=== PATIENT | female | born 1935 | race Caucasian/White ===

== ENCOUNTER 2017-11-24 10:31 | Inpatient (IN) | payer MEDICARE, BC ==
[~2017-11-24] VITALS: Ht 165.1 cm; Wt 83.0 kg
--- NOTE | 2017-11-24 10:43 | NUR ---
PT TO ROOM PER EMS.
[2017-11-24] MEDS ORDERED: TRAZODONE50 MG PO (10:45)
[2017-11-24] MEDS ORDERED: FUROSEMIDE40 MG PO (10:45)
[2017-11-24] MEDS ORDERED: METOPROL TAR25 MG PO (10:45)
[2017-11-24] MEDS ORDERED: AMLODIPINE5 MG PO (10:46)
[2017-11-24] MEDS ORDERED: CEVIMELINE HCL30 MG PO (10:46)
[2017-11-24] MEDS ORDERED: ROPINIROLE2 MG PO (10:47)
[2017-11-24] MEDS ORDERED: GABAPENTIN100 MG PO (10:47)
[2017-11-24] MEDS ORDERED: KLOR-CON M2020 MEQ PO (10:47)
[2017-11-24] MEDS ORDERED: AMIODARONE200 MG PO (10:48)
[2017-11-24] MEDS ORDERED: NEXIUM40 MG PO (10:48)
[2017-11-24] MEDS ORDERED: PREDNISONE10 MG PO (10:49)
[2017-11-24] MEDS ORDERED: ASPIRIN81 MG PO (10:49)
--- NOTE | 2017-11-24 10:58 | NUR ---
EMS UNABLE TO ESTABLISH IV SITE, SERGIO AQUINO UNABLE TO OBTAIN IV SITE. ORDER PLACED FOR A PICC LINE. PT ALERT/ORIENTED X3, JOKING AND LAUGHING WITH STAFF. STATES JUST TRIPPED AND FELL AND COULD NOT GET BACK UP.
--- NOTE | 2017-11-24 10:59 | NUR ---
PT TAKEN OFF OF BACK BOARD PER DR. YA. AND TAKEN TO CT. SCAN FOR PLACEMENT OF PIC LINE AND XRAYS.
--- NOTE | 2017-11-24 11:38 | NUR ---
PT RETURNS FROM XRAY, FRIEND AT BEDSIDE. VITAL SIGNS STABLE.
--- NOTE | 2017-11-24 11:47 | NUR ---
CM spoke with charge nurse Guillermo regarding admission status. CM reviewed the chart and advised IP. Karri voiced agreement and stated he will inform the physician of same.
--- NOTE | 2017-11-24 12:25 | NUR ---
PT SUPINE ON STRETCHER. PP+BILAT. CAP REFILL BRISK. RLE W/OUTER ROTATION AND SHORTENING. PT CURRENTLY REPORTS DECREASE IN PAIN. ADVISED OF WAIT TIME. PT VOICED UNDERSTANDING AND IS CURRENTLY NPO. VSS. CALL LIGHT WITHIN REACH.
--- NOTE | 2017-11-24 12:59 | NUR ---
RASCON CATH 16F INSERTED USING STERILE TECHNIQUE. PT TOLERATED WELL. URINE SPECIMEN COLLECTED.
[2017-11-24 13:11] LABS: URINE BILIRUBIN - DIPSTICK NEGATIVE (NEGATIVE); URINE BLOOD DIPSTICK TRACE-INTACT (NEGATIVE); URINE CLARITY CLEAR; URINE COLOR YELLOW; URINE GLUCOSE - DIPSTICK NEGATIVE (NEGATIVE); URINE KETONE NEGATIVE (NEGATIVE); URINE LEUK ESTERASE NEGATIVE (NEGATIVE); URINE NITRITE - DIPSTICK NEGATIVE (Negative); URINE PROTEIN - DIPSTICK NEGATIVE (NEG-TRACE); URINE UROBILINOGEN - DIPSTICK 0.2 E.U./dL (0.2)
[2017-11-24 13:13] LABS: HEMATOCRIT 37.2 % (37.0-47.0); HEMOGLOBIN 12.6 g/dl (12.0-16.0); IMMATURE GRANULOCYTES 0.5 % (0.0-5.0); MEAN CELL VOLUME 101.4 fL CALC (80.0-100.0); MEAN CORPUSCULAR HGB 34.3 pG CALC (26.0-32.0); MEAN CORPUSCULAR HGB CONC 33.9 g/L CALC (32.0-36.0); NEUT# 11.25 thou/uL (2.00-7.15); RED BLOOD COUNT 3.67 mill/uL (4.20-5.60)
[2017-11-24 13:33] LABS: ALBUMIN 3.6 g/dL (3.2-5.0); ALKALINE PHOSPHATASE 80 u/l (38-126); ANION GAP 14 (6-22 (CALC)); BILIRUBIN, TOTAL 0.7 mg/dL (0.0-1.4); BUN 17 mg/dL (8-23); BUN/CREATININE RATIO 23 (12-20 (CALC)); CARBON DIOXIDE 26 mmol/l (22-30); CHLORIDE 102 mmol/l (95-108); CREATININE 0.8 mg/dL (0.5-1.0); GFR > 60 ML/MIN (>=60 (CALC)); GFR FOR AFR.AMER. > 60 ML/MIN (>=60 (CALC)); SGOT/AST 43 u/l (9-36); SODIUM 138 mmol/l (137-146); TOTAL PROTEIN 6.9 g/dL (6.3-8.2)
[2017-11-24 13:36] LABS: POTASSIUM 3.5 mmol/l (3.5-5.1)
--- NOTE | 2017-11-24 14:34 | NUR ---
PT W/DECREASE IN BP PT IS SUPINE. IV FLUIDS INITIATED BRISK RETURN FROM PICC. AWARE.
--- NOTE | 2017-11-24 15:06 | NUR ---
BP IMPROVED 168/69. MD AWARE. PT MEDICATED FOR PAIN W/MORPHINE. REPORT PROVIDED TO MILES CASTILLO. PT TO NI VIA STRETCHER IN STABLE CONDITION.
[2017-11-24 15:43] VITALS: BP 165/77
--- NOTE | 2017-11-24 16:24 | NUR ---
PT ARRIVES TO ROOM 280 VIA STRETCHER FROM ER, SLID OVER TO BED WITH DISCOMFORT NOTED. PT IS ALERT AND ORIENTED X 3, LUNGS CLEAR. PT FELL THIS AM PRIOR TO HER USUAL BM, NO URGE AT THIS TIME. RIGHT LEG IS SHORTNED AND EXTERNALLY ROTATED IN THE BED PER HP FX.
--- NOTE | 2017-11-24 17:39 | NUR ---
PER LAURA FROM OR, SURGERY TO BE DONE WEDNESDAY, SECOND CASE, WILL RETAIL SERVICES PROFESSIONAL FROM ROOM AROUND 1230.
[2017-11-24 20:00] VITALS: BP 97/58
--- NOTE | 2017-11-24 20:35 | NUR ---
PT MEDICATED ORDERS PROVIDE FOR PAIN REPORTED 7/10 ON PAIN SCALE AND FOR SLEEP AIDE. PT REFUSED MILK OF MAG STATING SHE HAD BM YESTERDAY. POC DISCUSSED W/PT AND MEDICATION SIDE AFFECTS DISCUSSED, BUT SHE REFUSED MOM. PULSES STRONG AND CIRCULATION INTACT TO RIGHT LEG/FOOT/ABLE TO WIGGLE TOES/WARM TO TOUCH. LOCX3, LUNG SOUNDS ARE CLEAR, ABD SOFT NON-TENDER.
--- NOTE | 2017-11-25 00:05 | NUR ---
PT HAS BEEN SLEEPING, BUT AWOKE HOT. I ASSISTED HER IN REMOVING SEVERAL BLANKETS AND TURNING ROOM COOLER. SHE DENIED THE NEED FOR REPOSITIONING. CALL LIGHT IS AT SIDE AND PT ENCOURAGED TO CALL IF ANY OTHER NEEDS ARISE, DENIES ANY AT THIS TIME.
--- NOTE | 2017-11-25 02:05 | NUR ---
PT MEDICATED FOR PAIN 7/10 ON PAIN SCALE REPORTED. ASSISTED IN REPOSITIONING FOR COMFORT. ASSISTED IN PO FLUIDS INTAKE. IV FLUIDS ARE RUNNING NS@100/SITE APPEARS HEALTHY AND PATENT. RASCON CATHETER PATENT AND DRAINING CLEAR YELLOW URINE. PT DENIES ANY OTHER NEEDS AT THIS TIME.
--- NOTE | 2017-11-25 04:44 | NUR ---
PT CALLED ASKING FOR ASSISTANCE IN REPOSITIONING, SHE WANTED TO ATTEMPT TO SIT UP. WE RAISED THE BED SLOWLY, BUT SHE WANTED TO SIT UP W/OUT THE BED ASSISTING. I EXPLAINED TO HER THAT SHE NEEDED SOMETHING SUPPORTING HER BACK, SO WE RAISED HER BED SLIGHTLY. SHE WAS CONCERNED ABOUT BEING ABLE TO EAT BREAKFAST, I REASSURED HER THAT SHE HAD QUITE AWHILE UNTIL BREAKFAST AND WE WOULD TREAT HER FOR PAIN AND ASSIST HER IN POSITIONING AND EATING WHEN THE TIME CAME. SHE REPORTS THAT HER PAIN IS 2/10 AT THIS TIME AND THAT SHE FEELS GOOD LONG SHE IS STILL. DENIES ANY OTHER NEEDS. IV FLUIDS RUNNING NS@100 IN PICC LINE. CALL LIGHT W/IN REACH AND PT ENCOURAGED TO CALL IF SHE NEEDS ANY ASSISTANCE AT ALL. ASSISTED WITH PO FLUIDS PRIOR TO LEAVING ROOM.
[2017-11-25 05:19] LABS: MEAN CELL VOLUME 104.4 fL CALC (80.0-100.0); MEAN CORPUSCULAR HGB 34.8 pG CALC (26.0-32.0); MEAN CORPUSCULAR HGB CONC 33.3 g/L CALC (32.0-36.0); RED BLOOD COUNT 3.16 mill/uL (4.20-5.60); RED CELL DISTRI WIDTH 13.2 % (11.5-15.5)
[2017-11-25 05:23] VITALS: BP 93/5
[2017-11-25 05:34] LABS: ANION GAP 12 (6-22 (CALC)); BUN 19 mg/dL (8-23); BUN/CREATININE RATIO 24 (12-20 (CALC)); CALCULATED LDLCHOLESTEROL 56 mg/dL (62-129 (CALC)); CARBON DIOXIDE 23 mmol/l (22-30); CHLORIDE 105 mmol/l (95-108); CHOLESTEROL HDL RATIO 3.2 (<4.4 (CALC)); CREATININE 0.8 mg/dL (0.5-1.0); GFR > 60 ML/MIN (>=60 (CALC)); GFR FOR AFR.AMER. > 60 ML/MIN (>=60 (CALC)); HDL CHOLESTEROL 35 mg/dL (>=40); MAGNESIUM 1.6 mg/dL (1.6-2.3); POTASSIUM 4.1 mmol/l (3.5-5.1); SODIUM 136 mmol/l (137-146); TOTAL CHOLESTEROL 112 mg/dl (0-199); TOTAL TRIGLYCERIDES 102 mg/dl (30-149); VLDL CHOLESTROL 20 mg/dl (0-48 (CALC))
--- NOTE | 2017-11-25 07:16 | NUR ---
BEDSIDE REPORT RECEIVED BY MALIK. PT IS SLEEPING IN BED WITH NO S/S OF DISTRESS NOTED. CALL LIGHT IN REACH.
[2017-11-25 08:40] VITALS: BP 137/72
--- NOTE | 2017-11-25 08:52 | NUR ---
ASSESSMENT DONE RESPS EVEN AND UNLABORED. PT IS A&O X3. MEDICATED PT WITH PERCOCET FOR PAIN SEE EMAR. RU PICC/NS 100ML/HR INFUSING WELL. PT DENIES ANY OTHER NEEDS AT THIS TIME. PT ABLE TO MOVE RIGHT LEG AND PULSE FELT. SAFETY PRECAUTIONS REINFORCED AND CALL LIGHT IN REACH.
--- NOTE | 2017-11-25 11:07 | NUR ---
Pt consented to receiving Pneumonia vaccine. However, pt received previous pneumonia vaccine at [facility]. Next pneumonia vaccine not due until August 2018 per pt. No pneumonia vaccine indicated at this time.
--- NOTE | 2017-11-25 11:14 | NUR ---
The request for medical records was sent and completed @11:15 am. Spoke to nia from Dr. Hickey office to confirm faw number.
--- NOTE | 2017-11-25 12:00 | NUR ---
PT IS EATING HER LUNCH AND VISITING WITH FRIENDS. PT DENIES ANY NEEDS AT THIS TIME. CALL LIGHT IN REACH.
--- NOTE | 2017-11-25 13:10 | NUR ---
WERNER SANCHEZ STATED THAT RECEIVED CLEARACNE FROM FOR PT TO HAVE SURGERY TOMORROW.
[2017-11-25 15:12] VITALS: BP 128/60
--- NOTE | 2017-11-25 15:41 | NUR ---
X3 PERSON ASSIST PT FOR A COMPLETE BED BATH. MEDICATED PT WITH MORPHINE FOR PAIN SEE EMAR. RASCON IS PATENT WITH YELLOW URINE. CALL LIGHT IN REACH.
--- NOTE | 2017-11-25 19:15 | NUR ---
BEDSIDE REPORT RECEIVED FROM DAY NURSE. PT IS IN BED LOW FOWLERS POSITION. ASSISTED PT IN REPOSITIONING FOR COMFORT. LIGHTS TURNED DOWN AND TV LEFT ON. REINFORCED TO PT BED CONTROLS AND CALL SYSTEM. SHE SAID SHE HAS TROUBLE REMEMBERING. PT ENCOURAGED TO CALL FOR ANY OF THOSE NEEDS AND I WILL ASSIST HER. CALL LIGHT NEXT TO HAND IN BED.
[2017-11-25 19:30] VITALS: BP 146/68
--- NOTE | 2017-11-25 20:53 | NUR ---
PT MEDICATED FOR PAIN 08/31. PT IS TALKATIVE AND ASKING LOTS OF QUESTIONS REGARDING HER SCHEDULE FOR TREATMENT TOMORROW. PT ASSISTED IN REPOSITIONING FOR COMFORT. PEDAL PULSES ARE STRONG AND CIRCULATION IS GOOD TO RIGHT LOWER EXT WITH WARM TO TOUCH, TOES AND FOOT WIGGLES. LUNG SOUNDS ARE CLEAR, ABD SOFT NON-TENDER, RASCON CATHETER PATENT AND DRAINING CLEAR YELLOW URINE AT THIS TIME WITH LEG STRAP IN PLACE. PT ASSISTED IN PO FLUIDS AND POC DISCUSSED WITH HER. DENIES ANY OTHER NEEDS AND CALL LIGHT AT SIDE.
[2017-11-26] VITALS (13 sets, daily range): BP systolic 106–197; BP diastolic 54–90
--- NOTE | 2017-11-26 02:45 | NUR ---
PT IS SLEEPING AT THIS TIME. NO S/S OF DISTRESS NOTED. CALL LIGHT AT SIDE AND DOOR OPEN.
--- NOTE | 2017-11-26 05:10 | NUR ---
PT MEDICATED FOR PAIN 10/01. DENIES ANY OTHER NEEDS REFUSES ANY CHANGE OF POSITION
--- NOTE | 2017-11-26 07:16 | NUR ---
BEDSIDE REPORT RECIEVED BY MALIK. PT IS RESTING IN BED WITH NO S/S OF DISTRESS NOTED.PT DENIES NEEDS AT THIS TIME. CALL LIGHT IN REACH.
--- NOTE | 2017-11-26 08:20 | NUR ---
DR. NORTON AT BEDSIDE TO ASSESS PT. ASSESSMENT DONE RESPS EVEN AND UNLABORED. PT STATED PAIN 4/10 IN HIP BUT DENIES PAIN MEDICATION AT THIS TIME. AT THIS TIME. PT IS A&O X3. RASCON IS PATENT WITH YELLOW URINE. PT DENEIS NEEDS AT THIS TIME. RU PICC/ NS 100ML/ HR INFUSING WELL. SAFETY PRECAUTIONS REINFORCED AND CALL LIGHT IN REACH.
--- NOTE | 2017-11-26 11:09 | NUR ---
MILES REDDY FROM OR CAME TO TAKE PT TO OR VIA BED. ENVIRONMENTAL LEAD AT SIDE.
--- NOTE | 2017-11-26 15:03 | NUR ---
PT CAME FROM OR VIA BED BY SOTERO. REPORT RECEIVED BY SOTERO. PT IS SHIVERING BUT STATED NOT COLD. INSIDE UPHOLSTERER WILL OBTAIN VS. PT DENIES PAIN AT THIS TIME. RASCON IS PATENT WITH YELLOW URINE. RIGHT HIP DRESSING CDI.CALL LIGHT IN REACH.
--- NOTE | 2017-11-26 15:41 | NUR ---
MEDICATED PT WITH HYDRALAZINE FOR BP 172/81 P-95. PT O2 AT ROOM AIR 88-89% BUT PT IS NOT TAKING DEEP BREATHS ENCOURAGE PT TO TAKE DEEP BREATHS. O2 PLACE AT 2L/MIN NOW 90%. CALL LIGHT IN REACH.
--- NOTE | 2017-11-26 16:15 | NUR ---
PT IS RESTING IN BED WITH NO S/S OF DISTRESS NOTED. PT DENIES PAIN AT THIS TIME. DRESSING TO RIGHT HIP CDI. CALL LIGHT IN REACH.
--- NOTE | 2017-11-26 19:28 | NUR ---
BEDSIDE REPORT RECEIVED, PT IS IN LOW FOWLERS POSITION W/ORGANIZATIONAL DEVELOPMENT DIRECTOR AT BEDSIDE. PT IS ATTEMPTING TO USE IS, SHE HAD QUESTIONS SO I RE-EDUCATED HER AND WORKED WITH HER IN USE OF THE IS. SHE DID PRACTICE BREATHS SHOWING USAGE. I ENCOURAGED HER TO USE 10X/HOUR WHILE AWAKE. WILL CONTINUE TO MONITOR. PT APPEARS FRUSTRATED,BUT NOT IN DISTRESS. CALL LIGHT AT SIDE AND PT ENCOURAGED TO CALL IF ANY NEEDS ARISE.
--- NOTE | 2017-11-26 20:26 | NUR ---
PT MEDICATED ORDERS PROVIDE AND IV ANTIBIOTIC ADMINISTERED AT THIS TIME. PT ASSISTED IN REPOSITION LEGS, REFUSES TO BE MOVED AT ALL. POC DISCUSSED W/PT. RASCON CATHETER IS DRAINING CLEAR YELLOW URINE, TUBING WAS UNATTACHED TO STRAP/ATTACHED RASCON TUBING TO STRAP. WILL CONTINUE TO MONITOR. PT MEDICATED FOR PAIN REPORTED 11/01 - "08/31 WHEN NOT MOVING AT ALL." CALL LIGHT AT SIDE AND PT ENCOURAGED TO CALL.
[2017-11-27 00:18] VITALS: BP 148/75
--- NOTE | 2017-11-27 00:25 | NUR ---
PT IS SLEEPING, NO S/S OF DISTRESS NOTED. CALL LIGHT W/IN REACH AT SIDE.
--- NOTE | 2017-11-27 03:18 | NUR ---
PT IS SLEEPING SOUNDLY NO S/S OF DISTRESS NOTED. CALL LIGHT W/IN REACH AND DOOR OPEN PER PT REQUEST. IV FLUIDS ARE RUNNING NS@100. RASCON CATHETER PATENT AND DRAINING CLEAR YELLOW URINE/CLIP IN PLACE.
--- NOTE | 2017-11-27 04:49 | NUR ---
PT IS AWAKE AND TALKING TO AIDE AND WANT AD SUPERVISOR. STATES SHE IS FEELING "GREAT." BLOOD DRAWN FROM PICC LINE, FLUSHED W/NS AND HEPARIN. IV FLUIDS RESUMED AND ANTIBIOTIC THERAPY ADMINSTERED ORDERS PROVIDE. PT DENIES ANY OTHER NEEDS AND REPORTS SLEEPING GREAT. CALL LIGHT IS AT SIDE.
[2017-11-27 05:21] LABS: HEMATOCRIT 31.1 % (37.0-47.0); HEMOGLOBIN 10.4 g/dl (12.0-16.0); IMMATURE GRANULOCYTES 0.8 % (0.0-5.0); MEAN CELL VOLUME 101.3 fL CALC (80.0-100.0); MEAN CORPUSCULAR HGB 33.9 pG CALC (26.0-32.0); MEAN CORPUSCULAR HGB CONC 33.4 g/L CALC (32.0-36.0); NEUT# 7.62 thou/uL (2.00-7.15); RED BLOOD COUNT 3.07 mill/uL (4.20-5.60); RED CELL DISTRI WIDTH 12.9 % (11.5-15.5)
[2017-11-27 05:24] VITALS: BP 119/72
[2017-11-27 05:50] LABS: ALKALINE PHOSPHATASE 70 u/l (38-126); BILIRUBIN, TOTAL 0.7 mg/dL (0.0-1.4); BUN 7 mg/dL (8-23); BUN/CREATININE RATIO 11 (12-20 (CALC)); CHLORIDE 95 mmol/l (95-108); CREATININE 0.6 mg/dL (0.5-1.0); GFR > 60 ML/MIN (>=60 (CALC)); GFR FOR AFR.AMER. > 60 ML/MIN (>=60 (CALC)); POTASSIUM 3.9 mmol/l (3.5-5.1); SGOT/AST 36 u/l (9-36); SODIUM 132 mmol/l (137-146)
[2017-11-27 06:01] LABS: ALBUMIN 2.5 g/dL (3.2-5.0); ANION GAP 11 (6-22 (CALC)); CARBON DIOXIDE 30 mmol/l (22-30); TOTAL PROTEIN 5.3 g/dL (6.3-8.2)
--- NOTE | 2017-11-27 07:00 | NUR ---
SHIFT CHANGE REPORT FROM CRISTOBAL JACQUES SLEEPING BUT AROUSES TO VERBAL/TACTILE STIMULI, C/O RIGHT HIP PAIN @ 11/01, CONCERN ADDRESSED. IVF INFUSING, CALL GAGE IN REACH.
[2017-11-27 09:28] VITALS: BP 122/66
--- NOTE | 2017-11-27 11:10 | NUR ---
PHYSICAL THERAPIST HERE TO EVAL AND TREAT, PT TOO LETHARGIC AND WILL NOT STAY AWAKE LONG ENOUGH FOR THERAPY REPORTED, WILL CONTINUE TO MONITOR, CALL GAGE IN REACH.
--- NOTE | 2017-11-27 13:25 | NUR ---
PM TX- PT WAS SEEN RESTING SUPINE ON BED. AGREED TO PARTICIPATE WITH TX. PT SAT UP ON BED FROM SUPINE WITH MAX. A AND CONSTANT VC ON HAND PLACEMENT. PT WAS STILL GROGGY BUT WAS AROUSABLE WITH VERBAL STIMULATION AND LIGHT SHAKING. PT COULD BARELY STAND UP WHEN SHE ATTEMPTED TO AND ALSO REQUIRED MAX A TO COMPLETE THE ACTIVITY. NOTED PROPER EXECUTION OF TOUCH DOWN WB ADVISED BY THERAPIST PRIOR TO STANDING ACTIVITY. PT WAS ASSISTED TO SIT BACK DOWN ON BED POSITIONED IN THE LOWEST LEVEL. SHE SCOOTED HERSELF UP ON BED THEN GIVEN MOD A TO REPOSITION TO SUPINE. PT IMMEDIATELY WENT TO SLEEP AT THE END OF ACTIVITY. LEFT PT WITH NURSING IN THE ROOM. LEFT EXERCISE HANDOUT DISCUSSED IN THE AM TX.
[2017-11-27 16:02] VITALS: BP 102/62
[2017-11-27 19:16] VITALS: BP 130/66
--- NOTE | 2017-11-27 19:40 | NUR ---
BEDSIDE REPORT RECEIVED FROM DAY NURSE. PT WAS SLEEPING, BUT AWOKE TO OUR VOICES. SHE REPORTS FEELING "MUCH BETTER." DRESSING TO RIGHT HIP IS CDI, RASCON CATHETER PATENT AND DRAINING LIGHT MARY URINE. PT DENIES ANY NEEDS AT THIS TIME. IS DISCUSSED AND POC DISCUSSED. WILL FOLLOW-UP WITH FULL ASSESSMENT AND MEDICATIONS ORDERED AND CONTINUE TO MONITOR.
--- NOTE | 2017-11-27 21:58 | NUR ---
PT MEDICATED ORDERS PROVIDE. PT REPORTS PAIN LEVEL 2/10 AND DENIES PAIN MEDICATION AT THIS TIME STATING, "MAYBE LATER." NO OTHER S/O DISTRESS NOTED. DRESSING TO RIGHT HIP IS CDI, ICE PACK PLACED TO RIGHT HIP. PT IS ABLE TO SLIGHTLY MOVE LEG 1" IN BED, NO FURTHER. SCD'S TO LOWER LEFT EXT. PT DEMONSTRATED USE OF IS. ASSISTED W/PO FLUIDS. GOOD CIRCULATION TO RIGHT LEG STRONG PEDAL PULSES. RASCON CATHETER IS PATENT AND DRAINING MARY URINE.
--- NOTE | 2017-11-28 02:05 | NUR ---
PT IS SLEEPING, AWOKE TO MY ENTERING ROOM. SHE DENIED ANY NEED FOR PAIN MEDICATION AT THIS TIME, ASSISTED DRINKING WATER AND PROCEEDED TO ATTEMPT TO GO BACK TO SLEEP DENYING ANY OTHER NEEDS. CALL LIGHT AT SIDE.
[2017-11-28 04:55] VITALS: BP 127/77
--- NOTE | 2017-11-28 05:20 | NUR ---
PT REPOSITIONED IN BED AND ASSISTED IN REPOSITIONING LEG. PT IS NOT MOVING LEG ON HER OWN AT ALL. MEDICATED FOR PAIN 9/10 ON PAIN SCALE. DRESSING TO RIGHT HIP IS CDI, RASCON CATHETER IS DRAINING PEACH URINE. PT PROVIDED GINER-DALE PER REQUEST. CALL LIGHT AT BEDSIDE. ICE PACK TO RIGHT HIP.
--- NOTE | 2017-11-28 07:00 | NUR ---
SHIFT CHANGE REPORT FROM CRISTOBAL JACQUES AWAKE AND ALERT, DISORIENTED TO TIME, NO C/O PAIN AT THIS TIME. DR NORTON ROUNDED AND WROTE NEW ORDERS. ENCOURAGED TO USE INCENTIVE SPIROMETER, RASCON CATHETER REMOVED @ 0810 WITHOUT DIFFICULTY, WILL CONTINUE TO MONITOR, CALL GAGE IN REACH.
[2017-11-28 08:11] VITALS: BP 110/65
--- NOTE | 2017-11-28 12:14 | NUR ---
UP TO RECLINER WITH MAX ASSIST OF PHYSICAL THERAPIST AND STAFF, SET UP FOR MEAL AND EATING AT THIS TIME.
--- NOTE | 2017-11-28 12:25 | NUR ---
PATIENT HAPPY TO SEE THERAPIST SHE FEELS SHE HAS TO GET OOB TO USE COMMODE FOR BM. MAX A OF 2 FOR SUPINE TO SIT. REVIEWED TTWB R LE. PATIENT COMPLAINING THAT HER DSG IS STICKING TO THE BED AND SHE CANNOT MOVE. R LE SUPPORTED AND DRAW SHEET USED TO BRING PATIENT'S L FOOT TO [facility]. SIT TO STAND WITH MAX A OF 2 AT WALKER. PATIENT UNABLE TO STAND ERECT AND ONLY LEANING FORWARD RESTING HEAD ON THERAPIST IN FRON OF HER. MAX OF 1 AND MOD OF 1 FOR STANDING PIVOT TRANSFER WITH WALKER TO BSC. PATIENT BECAME NAUSEOUS AND REQUIRED SOME TIME FOR SAME AND BM. RETURNED AND PLACED RECLINER FOR STANDING PIVOT TO LEFT. MAX A OF 2 AGAIN WITH DIFFICULTY FOLLOWING DIRECTIONS FOR HAND PLACEMENT. REQUIRED MAX SUPPORT TO STAND WHILE BSC REMOVED AND CHAIR PLACED BEHIND HER. POOR SAFETY AWARENESS AND UNABLE TO MAINTAIN TTWB ON R LE. LE ELEVATED, CALL GAGE AND LUNCH TRAY IN REACH. FUNCTIONAL ACTIVITY X 45 MIN. WILL CONTINUE BID.
--- NOTE | 2017-11-28 13:26 | NUR ---
PATIENT ASLEEP IN RECLINER, BUT EASILY AROUSED. ABLE TO LEAN FORWARD FOR GAIT BELT TO BE DONNED. MOD A OF 2 WITH V.C.'S TO PUSH OFF FROM CHAIR AND THEN PUSH DOWN ON WALKER ONCE HANDS SECURE. SHE WAS ABLE TO DO SO AND STAND MORE ERECT WITH R FOOT FORWARD TO DECREASE WB'G ON SAME. MOD A OF 2 TO MAINTAIN STANDING FOR SWIVEL STEP LEFT AND ASSIST TO TURN WALKER FOR SAFE MINDA. SHE WAS NOT ABLE TO SLIDE HER LEFT FOOT BACK TO REACH THE BED AND BED WAS MOVED TO HER. SHE WAS NOT ABLE TO SUSTAIN STANDING UNTIL HANDS WERE ON BED, AND SAT PREMATURELY WITH MOD A OF 2. LE'S SUPPORTED FOR SIT TO SUPINE AND THEN PATIENT WAS ABLE TO USE LEFT LEG TO ASSIST WITH LATERAL BED MOBILITY WITH USE OF HANDRAILS. R LEG ELEVATED ON PILLOW, TRAY TABLES, PHONE AND CALL GAGE IN REACH. TOLERATED P.M. TX MUCH BETTER WITH IMPROVED ABILITY TO FOLLOW DIRECTIONS AND SUPPORT HERSELF WITH HER UE'S. SHE CONTINUES TO HAVE DIFFICUTLY WITH TTWB R LE, BUT IS ABLE TO KEEPIT FORWARD WITH FOOT FLAT FOR MINIMAL WB'G. CONTINUE BID.
[2017-11-28 15:45] VITALS: BP 124/77
[2017-11-28 19:23] VITALS: BP 120/71
--- NOTE | 2017-11-28 19:30 | NUR ---
RECEIVED CHANGE OF SHIFT REPORT FROM MILES JOYNER. PT ALERT AND ORIENTED AND LYING IN BED. DENIES PAIN. NO APPARENT ACUTE DISTRESS NOTED. WILL CONTINUE TO MONITOR.
--- NOTE | 2017-11-29 | NUR ---
PT RESTING QUIETLY WITH EYES CLOSED. NO APPARENT ACUTE DISTRESS NOTED. WILL CONTINUE TO MONITOR.
[2017-11-29 04:34] VITALS: BP 131/61
--- NOTE | 2017-11-29 04:50 | NUR ---
PT C/O NAUSEA. DR NORTON NOTIFIED AND ORDERS FOR ZOFRAN 4MG IV RECEIVED.
[2017-11-29 05:32] LABS: HEMATOCRIT 29.4 % (37.0-47.0); HEMOGLOBIN 9.6 g/dl (12.0-16.0); IMMATURE GRANULOCYTES 0.7 % (0.0-5.0); MEAN CELL VOLUME 103.2 fL CALC (80.0-100.0); MEAN CORPUSCULAR HGB 33.7 pG CALC (26.0-32.0); MEAN CORPUSCULAR HGB CONC 32.7 g/L CALC (32.0-36.0); NEUT# 6.28 thou/uL (2.00-7.15); RED BLOOD COUNT 2.85 mill/uL (4.20-5.60); RED CELL DISTRI WIDTH 13.2 % (11.5-15.5)
[2017-11-29 05:52] LABS: ALBUMIN 2.8 g/dL (3.2-5.0); ALKALINE PHOSPHATASE 91 u/l (38-126); ANION GAP 10 (6-22 (CALC)); BILIRUBIN, TOTAL 0.9 mg/dL (0.0-1.4); BUN 11 mg/dL (8-23); BUN/CREATININE RATIO 17 (12-20 (CALC)); CARBON DIOXIDE 31 mmol/l (22-30); CHLORIDE 95 mmol/l (95-108); CREATININE 0.6 mg/dL (0.5-1.0); GFR > 60 ML/MIN (>=60 (CALC)); GFR FOR AFR.AMER. > 60 ML/MIN (>=60 (CALC)); POTASSIUM 4.4 mmol/l (3.5-5.1); SGOT/AST 30 u/l (9-36); SODIUM 131 mmol/l (137-146); TOTAL PROTEIN 5.7 g/dL (6.3-8.2)
--- NOTE | 2017-11-29 07:15 | NUR ---
PT REPORT RECIEVED FROM MILES GRUBER. PT SLEEPING IN BED. NO S/S OF DISTRESS. NOTED. CALL LIGHT IN REACH. WILL CONTINUE TO MONITOR.
[2017-11-29 08:15] VITALS: BP 140/61
--- NOTE | 2017-11-29 08:15 | NUR ---
PT ASSESSMENT COMPLETE. PT A/O X3. SPEECH IS CLEAR. RESP EVEN AND UNLABORED. LUNG SOUNDS CLEAR. PT DENIES ANY COUGH OR SPUTUM OUTPUT THIS MORNING. ENCOURAGED USE OF INCENTIVE SPIROMETER. ABDOMEN ROUND, SOFT. BOWEL SOUNDS ACTIVE X4. RUE PICC HEP LOCK IN PLACE. SITE APPEARS HEALTHY. STRONG RADIAL AND PEDAL PULSES. RT HIP DRESSING, CDI. ICE APLLIED. ENCOURAGE USE OF BSC AND RECLINER. PT STATES SHE DOES WANT TO GET OUT OF BED AND USE THE BSC AND RECLINER. BSC NEAR BED. PT INSTRUCTED TO CALL FOR ASSISTANCE. PT STATES UNDERSTANDING. PLAN OF CARE DISCUSSED. SAFETY PRECAUTIONS IN PLACE. CALL LIGHT IN REACH. WILL CONTINUE TO MONITOR.
--- NOTE | 2017-11-29 10:05 | NUR ---
SPOKE WITH REGARDING POC AND D/C TO [facility], PT AGREES WITH POC.
--- NOTE | 2017-11-29 11:02 | NUR ---
AM- PT WAS SEEN SUPINE ON BED. AGREED TO PARTICIPATE WITH THERAPY. OFFERED MOD. ASSIST TO SIT ON EDGE OF BED. CONSTANT VERBAL CUES WERE ALSO GIVEN. PT WAS REMINDED OF WB STATUS PRIOR TO STANDING ACTIVITY. PT TOOK VERY LONG TIME BEFORE STANDING UP. PT WAS INSTRUCTED ON HOW TO PROPERLY ACCOMPLISH STANDING POSITION FROM SITTING. PT THEN STOOD UP WITH MAX A WHILE PUSHING SELF UP ON BED. SHE WAS ABLE TO TOOK FEW STEPS TO SIT HERSELF TO THE BEDSIDE COMMODE, W/ RW AND MIN A. AFTERWARDS, PT STOOD UP WITH VC AND TOOK FEW STEPS TO RECLINER NEARBY AND SAT HERSELF DOWN ON IT. PT WAS LEFT WITH NRSNG. NO ADVERSE RXNS NOTED OR REPORTED. PREVIOUS RECOMMENDATION TO PLACE PT IN AN IN-PT REHAB IS STILL APPROPRIATE BASED ON PATIENT'S FUNCTIONAL LEVEL.
[2017-11-29 11:25] VITALS: BP 117/74
--- NOTE | 2017-11-29 12:49 | NUR ---
PT REPORTS ACHING PAIN TO RT HIP. MEDICATED W/ TWO 325MG OXYCODONE TABLETS. REPOSITIONED PT RT HIP AND BED FOR COMFORT. PT DENIES ANY FURTHER NEEDS AT THIS TIME. CALL LIGHT IN REACH. WILL CONTINUE TO MONITOR.
[2017-11-29] MEDS ORDERED: PERCOCET 5/321 COMBO PO (13:20)
--- NOTE | 2017-11-29 13:26 | NUR ---
Pt was sleeping when therapist entered room. Pt stated she was going to go to Rehab. She reported just having pain meds and was tried, she did not want to get back out of bed at this time. Pt performed A/AAROM ex to LE in supine. Pt positioned with R heel off loaded. She was left with CLAIMS INVESTIGATOR in room.
--- NOTE | 2017-11-29 14:31 | NUR ---
Discharge instructions given. Patient verbalizes understanding of same. Discharged in stable condition via Wheelchair to [facility] with *Other. All belongings sent with pt.
--- NOTE | 2017-11-29 14:59 | NUR ---
REPORT RECEIV[facility] FROM MILES HAHN AT [facility]
== END 2017-11-29 14:30 | DRG 482 ==
LOC: ED 10:31 → ED-I 14:04 → ED 14:18 → MS2 14:19
PROVIDERS: Family Medicine; ADMIT Internal Medicine; ATTEND Internal Medicine Geriatric Medicine
PROC: 0T9B70Z Drainage of Bladder with Drainage Device, Via Natural or Artificial Opening (ICD-10-PCS; principal; 2017-11-24)
PROC: 02HV33Z Insertion of Infusion Device into Superior Vena Cava, Percutaneous Approach (ICD-10-PCS; 2017-11-24)
PROC: B518ZZA Fluoroscopy of Superior Vena Cava, Guidance (ICD-10-PCS; 2017-11-24)
PROC: 0QS606Z Reposition Right Upper Femur with Intramedullary Internal Fixation Device, Open Approach (ICD-10-PCS; 2017-11-26)
DX: S72.141A Displaced intertrochanteric fracture of right femur, initial encounter for closed fracture (principal); I10 Essential (primary) hypertension; K21.9 Gastro-esophageal reflux disease without esophagitis; G62.9 Polyneuropathy, unspecified; E66.01 Morbid (severe) obesity due to excess calories; W01.0XXA Fall on same level from slipping, tripping and stumbling without subsequent striking against object, initial encounter; Y93.E1 Activity, personal bathing and showering; Y92.002 Bathroom of unspecified non-institutional (private) residence as the place of occurrence of the external cause; Z68.30 Body mass index [BMI] 30.0-30.9, adult; Z95.3 Presence of xenogenic heart valve
CPT/HCPCS: J1650; J2270

== ENCOUNTER 2018-08-04 13:51 | Emergency (ER) | payer MEDICARE, BC ==
[~2018-08-04] VITALS: Ht 165.1 cm; Wt 71.0 kg
[~2018-08-04 13:51] MED LIST: AMIODARONE200 MG PO; AMLODIPINE5 MG PO; ASPIRIN81 MG PO; CEVIMELINE HCL30 MG PO; FUROSEMIDE40 MG PO; GABAPENTIN100 MG PO; KLOR-CON M2020 MEQ PO; METOPROL TAR25 MG PO; NEXIUM40 MG PO; PERCOCET 5/321 COMBO PO; PREDNISONE10 MG PO; ROPINIROLE2 MG PO; TRAZODONE50 MG PO
[2018-08-04 14:42] LABS: HEMATOCRIT 36.9 % (37.0-47.0); HEMOGLOBIN 12.8 g/dl (12.0-16.0); IMMATURE GRANULOCYTES 0.9 % (0.0-5.0); MEAN CELL VOLUME 90.9 fL CALC (80.0-100.0); MEAN CORPUSCULAR HGB 31.5 pG CALC (26.0-32.0); MEAN CORPUSCULAR HGB CONC 34.7 g/L CALC (32.0-36.0); NEUT# 6.73 thou/uL (2.00-7.15); RED BLOOD COUNT 4.06 mill/uL (4.20-5.60)
[2018-08-04 14:51] LABS: ALBUMIN 2.8 g/dL (3.2-5.0); ALKALINE PHOSPHATASE 205 u/l (38-126); BUN 11 mg/dL (8-23); BUN/CREATININE RATIO 16 (12-20 (CALC)); CREATININE 0.7 mg/dL (0.5-1.0); GFR > 60 ML/MIN (>=60 (CALC)); GFR FOR AFR.AMER. > 60 ML/MIN (>=60 (CALC)); SGOT/AST 100 u/l (9-36); TOTAL PROTEIN 6.5 g/dL (6.3-8.2)
[2018-08-04 14:54] LABS: ANION GAP 17 (6-22 (CALC)); BILIRUBIN, TOTAL 2.2 mg/dL (0.0-1.4); CARBON DIOXIDE 21 mmol/l (22-30); CHLORIDE 86 mmol/l (95-108); SODIUM 121 mmol/l (137-146)
[2018-08-04 18:55] VITALS: BP 138/83
[2018-08-04 19:07] LABS: URINE BILIRUBIN - DIPSTICK NEGATIVE (NEGATIVE); URINE BLOOD DIPSTICK NEGATIVE (NEGATIVE); URINE COLOR YELLOW; URINE GLUCOSE - DIPSTICK NEGATIVE (NEGATIVE); URINE KETONE TRACE mg/dL (NEGATIVE); URINE NITRITE - DIPSTICK NEGATIVE (Negative); URINE PH 6.5 (4.5-8.0); URINE PROTEIN - DIPSTICK NEGATIVE (NEG-TRACE); URINE SPECIFIC GRAVITY <=1.005; URINE UROBILINOGEN - DIPSTICK 0.2 E.U./dL (0.2)
[2018-08-04 19:10] LABS: URINE LEUK ESTERASE SMALL (NEGATIVE)
[2018-08-04 19:18] LABS: URINE RBC 0-2 RBC/hpf (0-5); URINE SQUAMOUS EPITHELIAL CELL FEW EPI/hpf (0-FEW)
== END 2018-08-04 18:55 | disposition short-term general hospital (02) ==
LOC: ED 13:51
PROVIDERS: Emergency Medicine
PROC: 0T9B70Z Drainage of Bladder with Drainage Device, Via Natural or Artificial Opening (ICD-10-PCS; principal; 2018-08-04)
DX: I50.9 Heart failure, unspecified (principal); E87.3 Alkalosis; E83.51 Hypocalcemia; E87.1 Hypo-osmolality and hyponatremia; R19.7 Diarrhea, unspecified; R06.02 Shortness of breath; R05 Cough; R53.1 Weakness; I48.91 Unspecified atrial fibrillation; B95.2 Enterococcus as the cause of diseases classified elsewhere
CPT/HCPCS: Q9967